=== PATIENT | male | born 1960 | race Caucasian/White ===

== ENCOUNTER 2016-12-26 13:00 | Inpatient (IN) | payer BC ==
[~2016-12-26] VITALS: Ht 175.3 cm; Wt 115.0 kg
--- NOTE | ~2016-12-26 | DS ---
PATIENT'S NAME: SNEHA RILEY [facility] AGE: 56 Y [address] ROOM: [place] [address] LOCATION: TU ADMIT DATE: 12/26/2016 Discharge Summary DISCHARGE DATE: 12/30/2016 FAMILY PHYSICIAN: Rivera Lux MD ATTENDING PHYSICIAN: Franky Giron PRIMARY DIAGNOSES: 1. 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 2. Dysarthria. 3. Right-sided weakness. 4. Paroxysmal atrial fibrillation, rate controlled. 5. Essential hypertension. 6. Hyperlipidemia. 7. Coronary artery disease status post coronary artery bypass grafting. 8. Osteoarthritis, generalized. OPERATIONS AND PROCEDURES: MRI scan of brain was performed on 12/27/2016 demonstrating a large left MCA stroke. Evidence for severe ethmoid maxillary sinusitis was noted. MR angiography performed on the same date was normal. HISTORY OF ILLNESS/REASON FOR ADMISSION: Please refer the H and P dictated on 12/26/2016. HOSPITAL COURSE: The patient was admitted to the hospital as noted above with a presumptive diagnosis of acute stroke. He did receive tPA at an outside facility before being transferred here. He was placed in the intensive care unit and post tPA protocol was followed. His clinical condition actually improved relatively quickly. By the following morning, his dysarthria had improved significantly and he was developing some improved dexterity and coordination in his right arm and leg. He had physical therapy and occupational therapy evaluations. Neurology was also involved in his evaluation. Because of the development of atrial fibrillation, Cardiology was also consulted. It was recommended to initiate Xarelto and initially this was recommended to start on 01/02/2017. After consultation with Neurology, however, and because of the large size of the stroke, there was concern for hemorrhagic conversion and was recommended to wait until 01/06/2017 to start anticoagulation and at that point, warfarin was the recommended alternative. The patient was maintained on Plavix over the course of his hospital stay here. He was otherwise rate controlled. The patient continued to show improvement, received continued physical PATIENT'S NAME: SNEHA RILEY [facility] AGE: 56 Y [address] ROOM: [place] [address] LOCATION: [facility] ADMIT DATE: 12/26/2016 Discharge Summary DISCHARGE DATE: 12/30/2016 FAMILY PHYSICIAN: Rivera Lux MD ATTENDING PHYSICIAN: Bree,Wilkins therapy, occupational therapy, and speech therapy evaluations. He also had physiatry evaluation. It is recommended that he could have outpatient therapy services. By the end of the 5th day of his hospital stay, it was felt he would be stable enough for discharge to home on an adjusted medication regimen with plans for close clinical followup with his primary care provider as well as outpatient followup with physiatry and eventual outpatient followup with neurology as well. DISCHARGE INSTRUCTIONS: DIET: Cardiac prudent as tolerated. ACTIVITY: As tolerated if outpatient physical therapy, occupational therapy, and speech therapy. MEDICATIONS: 1. Acetaminophen 650 mg p.o. q.4 hours p.r.n. pain or fever. 2. Amoxicillin 1000 mg p.o. q.i.d. for sinusitis. 3. Atorvastatin 80 mg p.o. q.p.m. 4. Plavix 75 mg p.o. daily. 5. Hydrochlorothiazide 25 mg p.o. daily. 6. Lisinopril 2.5 mg p.o. at bedtime. 7. Metoprolol 25 mg p.o. b.i.d. 8. MiraLAX 17 g p.o. b.i.d. 9. Spironolactone 25 mg p.o. daily. 10. Coumadin 5 mg p.o. daily. He will start this medication on 01/06/2017. FOLLOWUP: He will follow up with his primary care physician Dr. Lux in 3-5 days. Outpatient followup with Dr. Altamirano, resource engineer, next week. Follow up with Neurology on an as-needed basis. CONDITION ON DISCHARGE: Good. Total time spent on discharge process 35 minutes. MD ALMA ROSA CASTLE/matty /[id number] d: 12/31/16 1430 t: 01/04/17 1642, DISCHARGE SUMMARY
--- NOTE | ~2016-12-26 | CON ---
PATIENT'S NAME: SNEHA RILEY [facility] AGE: 56 Y [address] ROOM: [id number] [place], [place] [address] LOCATION: GICU ADMIT DATE: 12/26/2016 Consultation DISCHARGE DATE: FAMILY PHYSICIAN: PHYSICIAN, UNKNOWN ATTENDING PHYSICIAN: BASIL LOVING DATE OF CONSULTATION: 12/26/2016 REFERRING PHYSICIAN: Tru Altamirano MD NEUROLOGIC CONSULTATION DATE AND TIME OF DICTATION: 12/26/2016 at 3:51 p.m. HISTORY OF PRESENT ILLNESS: This is a 56-year-old, male, admitted to [facility] in a transfer from [facility] for status post stroke and tPA administration. Dr. Fitzpatrick was consulted by phone for the tPA recommendation which was given at 1156 hours and then the patient was shipped to [facility]. He was admitted around 0[address] in the [address] Dr. Loving, the hospitalist will be the admitting physician. Although, the transfer records are limited, it appears the last known well time of this patient was 1010 this a.m., when he was found with a left facial droop, inability to move his left arm, and was found and taken to the [place] [facility] at 1045 hours. He was evaluated for stroke per their protocol, had a CTA and a CT angiogram to rule out large-vessel occlusion and was given tPA at 1156 hours. The strokes scale completed at 1050 hours at their facility gave the patient a stroke scale of 10 with 1 for visual field loss, 2 for facial palsy, 2 for language aphasia, 2 for dysarthria, 2 for limb ataxia, and 1 for extinction and inattention. Upon arrival to [facility], his stroke scale was 7 which I will go into in the assessment. His blood pressure was in the 170s. His heart rate was acceptable. He was assessed and will be monitored in the intensive care unit post stroke tPA. PAST MEDICAL HISTORY: His prior medical history includes a four-vessel bypass in 2014. He does have coronary artery disease. He did not have an IN before the bypass. He is currently on full-dose aspirin, Lipitor, lisinopril, and metoprolol. He follows up with Cardiology in [place]. He has recently moved to [place] in the last year from [place]. SOCIAL HISTORY: The patient is . He has one son and three daughters. One of the daughters is an ED physician in [place], and is on her way down. He does not smoke or drink. He does use caffeine daily up to two cups a day. REVIEW OF SYSTEMS: PATIENT'S NAME: SNEHA RILEY [facility] AGE: 56 Y [address] ROOM: [place] [address] LOCATION: [facility] ADMIT DATE: 12/26/2016 Consultation DISCHARGE DATE: FAMILY PHYSICIAN: PHYSICIAN, UNKNOWN ATTENDING PHYSICIAN: BASIL LOVING Difficult to be completed because of the patient's condition and aphasia. He does deny any headache. Denies any chest palpitations or chest pain. PHYSICAL EXAMINATION: VITAL SIGNS: Blood pressure of 178/72, heart rate of 68, respirations 16, and afebrile. CONSTITUTIONAL: This is a well-nourished male in no apparent distress. HEENT: Head; normocephalic and atraumatic. External ocular movements are intact. Pupils are equal and reactive for brisk midline and round. NECK: Shows no JVD. There are no bruits appreciated. LUNGS: Respirations are even and unlabored. He is clear to auscultation bilaterally. CARDIOVASCULAR: environmental monitoring technician shows a sinus rhythm, with S1 and S2. No murmur, rub, or gallop. NEUROLOGY: Stroke scale for level of consciousness is zero, for month and age is 2, for following commands is zero, for gaze is zero, for visual deficit is 2, for facial droop is 1, for left arm is zero, for right arm is 1 for slight drift, left leg is zero, right leg is zero, ataxia is 1 for right arm, aphasia is 2, and dysarthria is 1, and he does have a slight neglect to the right; 1, 2, 3, 4, 5, 6, and 7 for his NIH Stroke Scale. He is definitely alert. He appears oriented although the aphasia is limiting as in the testing of that. When shown the stroke scale picture, he is able to graft the story, but he has difficulty relating it with his verbiage. He does demonstrate a sense of humor with the nurses. LABORATORY AND IMAGING DATA: Diagnostics include an EKG that shows sinus rhythm. He also had a CT of the head, which shows a very subtle area of low attenuation in the left posterior parietal lobe and wonder about decreased density in the left frontal lobe. There is no associated mass, mass effect, or extra-axial fluid collection, and no hemorrhage. So the CTA of his head also shows no large central thrombus, arterial flow is demonstrated in the vertebral basilar and carotid systems. There is minimal questionable decreased vascularity in the left parietal lobe when compared to the right, however, this could be due to the mild asymmetry within the gantry. IMPRESSION AND PLAN: 1. Stroke post tPA. The patient will be monitored in the ICU with the post stroke tPA protocol with frequent vital signs and neurological monitoring. We will hold aspirin until we get the 24-hour CT post tPA. We will investigate the reasons for the stroke. He is going to have an echocardiogram, carotid Dopplers, and we will also check his lipid profile. I did obtain his information from his CABG and followup from [place], and apparently, he did have some postsurgical atrial fibrillation, so we will have to keep that in account as we move forward PATIENT'S NAME: SNEHA RILEY [facility] AGE: 56 Y [address] ROOM: [place] [address] LOCATION: [facility] ADMIT DATE: 12/26/2016 Consultation DISCHARGE DATE: FAMILY PHYSICIAN: PHYSICIAN, JENNIFER ATTENDING PHYSICIAN: BASIL LOVING in examining the rest of the diagnostics. 2. PT, OT, and speech ordered for patient. Dr. Altamirano will consult on the patient for possible rehabilitation needs. 3. Plan of care was discussed with the and her friends and patient. The daughter is coming tonight so either Dr. Fitzpatrick or myself will discuss with her. Dr. Loving was present when Neurology was here so we were all on the same page as far as the plan of care. Thank you very much for this interesting consult. The consult was developed in conjunction with Dr. Fitzpatrick. ANA PAULA JAIMES APRN FOR DEREJE FITZPATRICK MD PP/matty /[id number] d: 12/26/162055 t: 01/14/17 1534, CONSULTATION REPORT
--- NOTE | ~2016-12-26 | ECHO ---
Transthoracic Echocardiography Report (TTE) Demographics Patient Name SNEHA RILEY Date of Study 12/26/2016 C Patient Number [id number] Visit Number [id number] Date of 1960 Room Number G6220 Accession Number [id number] Gender Male Age 56 year(s) Referring Bree Trevizo MD Grain Elevator Worker Sheela Davidson RVT Physician Physician Interpreting Marv Peoples Pin Inserter Regulator Physician Supervising Ordering Physician Bree Trevizo MD, MD/P Nurse Stress Quality Improvement Coordinator (Rn) Conclusions Contractility Score Summary Normal Left Ventricular contractility was noted. Summary The estimated left ventricular ejection fraction is 55% with normal WM and internal dimensions.Mild concentric left ventricular hypertrophy. The left atrium is severely dilated by LA volume index measurement. Mild MR. The right atrium is moderately dilated. Mildly dilated RV with normal function. Negative bubble study. The aortic valve is mildly sclerotic. Procedure Type of Study TTE procedure:2D Echocardiogram, M-Mode, Doppler , Color Doppler, Contrast study, Echo with Contrast. Procedure Date Date: 12/26/2016 Start: 03:03 PM Study Location: Inpatient Portable Technical Quality: Adequate visualization Indications:CVA. Appropriate Use Criteria: 9 Patient Status: Routine HR: 56 bpm BP: 168/78 mmHg M-Mode/2D Measurements LV Diastolic Dimension: 4.72 cm LV Systolic Dimension: 3.53 cm LV Septum Diastolic: 1.47 cm LV PW Diastolic: 1.44 cm AO Root Dimension: 2.1 cm Cardiac Output: 2.88 l/min AV Cusp Separation: 1.9 cm RV Diastolic Dimension: 3.06 cm LA volume: 85 ml LVOT: 2 cm RV Base: 3.3 cm LVOT VTI: 16.4 cm RV Mid: 3.86 cm LV Stroke volume: 51.5 ml TAPSE: 1.6 cm TDI-S': 11.5 cm/s Doppler Measurements AV Peak Velocity: 1.39 m/s MV Peak E-Wave: 0.93 m/s AV Peak Gradient: 7.73 mmHg MV Peak A-Wave: 0.46 m/s AV Mean Gradient: 4 mmHg MV E/A Ratio: 2 LVOT Peak Velocity: 0.71 m/s MV P1/2t: 73 msec TR Gradient:19.89 mmHg PV Peak Velocity: 0.97 m/s Estimated RAP:15 mmHg PV Peak Gradient: 3.74 mmHg Estimated RVSP: 35 mmHg Estimated PASP: 34.89 mmHg E' Septal Velocity: 0.07 m/s A' Septal Velocity: 0.08 m/s E' Lateral Velocity: 0.15 m/s A' Lateral Velocity: 0.13 m/s Findings Left Ventricle Mild concentric left ventricular hypertrophy with normal EF, WM and internal dimensions. Right Ventricle Mildly dilated right ventricle with normal function. Left Atrium The left atrium is severely dilated by LA volume index measurement. Right Atrium The right atrium is moderately dilated. IVC measures 1.37 cm with no inspiratory collapse. Negative bubble study. Mitral Valve Trivial mitral regurgitation by color Doppler. Aortic Valve The aortic valve is mildly sclerotic. Tricuspid Valve Trivial tricuspid regurgitation by color Doppler. Pulmonic Valve The pulmonic valve is not well visualized. Pericardial Effusion No evidence of pericardial effusion. Miscellaneous Visualized portions of the aortic root and ascending aorta appear normal in size. Pleural Effusion No evidence of pleural effusion. Contractility Score LV regional wall motion:(0-Non visualized 1-Normal 2-Hypokinesis 3-Akinesis 4-Dyskinesis 5-Aneurysm) Signature dtt: Richelle Fair dtd: 12/26/16 1503 Physician Self Edit
--- NOTE | ~2016-12-26 | CON ---
PATIENT'S NAME: SNEHA RILEY [facility] AGE: 56 Y [address] ROOM: [place] [address] LOCATION: [facility] ADMIT DATE: 12/26/2016 Consultation DISCHARGE DATE: FAMILY PHYSICIAN: Rivera Lux MD ATTENDING PHYSICIAN: BASIL LOVING REFERRING PHYSICIAN: Tru Altamirano MD Consult for Dr. Loving, hospitalist. This pleasant 56-year-old gentleman is referred for rehab evaluation, admitted on 12/26/2016 with sudden onset of weakness in right side with confusion and difficulty to see things, especially with the right side. CTA showed per history and physical minimal questionable decreased vascularity in the left parietal lobe in comparison to the right. He did receive per history and physical tPA without complication. Past history of significance: 1. History of coronary artery disease, status post CABG without VA. 2. History of hypertension. 3. Slight obesity, otherwise does not drink or smoke. 4. He is now alert, not able to name his family names, not able to name things (anomia). His voice is clear and not wet. Tongue and soft palate are moving symmetrical. He cannot see very well with the right eye, especially temporal side with neglect and visual cut on the temporal visual space. No facial droop at the present time. He can swallow without much difficulty. His voice is clear and not wet. Tongue and soft palate are moving symmetrical. He is unable to name family members and is unable to orient himself well towards time and sometimes even place. He is able to move his right upper and lower extremity; however, he is apraxic and cannot really know what to do with utensils sometimes unless he is cued. PHYSICAL EXAMINATION: VITAL SIGNS: Blood pressure 173/91, temperature 98.2, pulse 61, respirations 18. He is 5 feet 9 inches tall and weighs 114.5 kg. He is clinically and neurologically stable and intact. MEDICATIONS: PATIENT'S NAME: SNEHA RILEY [facility] AGE: 56 Y [address] ROOM: [address] [place] [id number] LOCATION: [facility] ADMIT DATE: 12/26/2016 Consultation DISCHARGE DATE: FAMILY PHYSICIAN: Rievra Lux MD ATTENDING PHYSICIAN: BASIL LOVING He is on the following medications: 1. Amoxicillin, which had been initiated before, details on history and physical. 2. Labetalol hydrochloride. 3. Lipitor. 4. Normal saline 0.9%. 5. Tylenol. At the present time, we will continue him on PT, OT, Speech which has been initiated. I feel that if he does not make good progress to go home and be managed at home, I will take him for intensive rehabilitation for about 2 weeks, aiming to discharge on modified independence. He is now on intensive care unit. I will continue to watch alongside with you. All the above was explained to him and his . They verbalized understanding and agreement with plan of care. MD ANTOLIN MEEKS/modl /[id number] d: 12/27/161901 t: 12/28/16 1101, CONSULTATION REPORT
--- NOTE | ~2016-12-26 | HP ---
PATIENT'S NAME: SNEHA RILEY [facility] AGE: 56 Y [address] ROOM: [address] [address] LOCATION: [facility] ADMIT DATE: 12/26/2016 History & Physical DISCHARGE DATE: FAMILY PHYSICIAN: PHYSICIAN, UNKNOWN ATTENDING PHYSICIAN: BASIL LOVING DATE OF SERVICE: CHIEF COMPLAINT: Right-sided facial droop and unable to speak and right upper and lower extremity weakness and sensation loss as well as transient blurry vision. HISTORY OF PRESENT ILLNESS: This is a 56-year-old, male who was walking on the way to the bank and suddenly he collapsed what he described as a sudden sensation of onset of weakness on the right side of the body upper and lower extremity associated with transient vision loss in both eyes and right upper and lower extremity weakness and sensation loss. The patient was not able to speak clearly, however, a bystander was able to call the ambulance, the patient was brought to the [facility] for evaluation. Over there, imaging test including CTA brain with contrast showed no large central thrombus and arterial flow is demonstrated in the vertebrobasilar and carotid system. Minimal questionable decreased vascularity in the left parietal lobe when compared to the right, however, this could also be due to mild asymmetry within the gantry. CT of the head without contrast was also performed and showed a question of low attenuation in the left frontal and posterior parietal lobes. Nonhemorrhagic ischemia is not is excluded. Findings were called to Dr. Redding, the ER physician, over there at [facility]. The blood test was also performed and it showed white blood cell 3.8, hemoglobin 12.9, hematocrit 38.3, platelet 132. Sodium 142, potassium 4.6, chloride 110, carbon dioxide 25, blood urea nitrogen 18, glucose 88, creatinine 1.1. Calcium 8.5, anion gap 12, GFR 74. ProBNP 456, INR less than one. PT 10.2, PTT 27.5. EKG was also performed show sinus rhythm at a heart rate of 73 beats per minute without any acute ischemic findings. Given that the patient is within the period for the tPA window and symptoms consistent with stroke based on the imaging study and on the clinical presentation, according to ER physician in [place], they had spoken to our neurologist and decision was to go ahead with tPA. All the benefit and risks were explained to the patient. The patient agreed and tPA was given. According to the medical records, tPA was given at 11:56 a.m. without complication. The patient denies any headache. Blood pressure was less than 185, therefore blood pressure medication was not given before the tPA. The patient was later transferred here for higher level of care. REVIEW OF SYSTEMS: As mentioned in the history of present illness. All other systems reviewed and negative except those mentioned in history of present illness. PATIENT'S NAME: SNEHA RILEY [facility] AGE: 56 Y [address] ROOM: [id number] [place], [place] [address] LOCATION: [facility] ADMIT DATE: 12/26/2016 History & Physical DISCHARGE DATE: FAMILY PHYSICIAN: PHYSICIAN, UNKNOWN ATTENDING PHYSICIAN: BASIL LOVING PAST MEDICAL HISTORY: I have requested the [facility] to fax the medical record, but they have not done so over 1 hour already. Based on what I could get from the patient's at the bedside and from the patient is that he has a history of hypertension and also a prior myocardial infarction with status post CABG in November 2014 in [place]. The patient and the patient's denies any other past medical history. ALLERGIES: NO KNOWN DRUG ALLERGIES ACCORDING TO THE PATIENT. HOME MEDICATIONS: 1. Amoxicillin 500 mg p.o. t.i.d. from December 24, 2016, to January 02, 2017. This is because he had a recent root canal procedure done by the dentist. 2. Aspirin 81 mg p.o. daily at bedtime. 3. Lipitor 40 mg p.o. daily at bedtime. 4. Cammie-Moira one packet p.o. every 12 hours p.r.n. for nasal congestion. 5. Lisinopril 2.5 mg p.o. every night at bedtime. 6. Lopressor 25 mg p.o. b.i.d. SOCIAL HISTORY: . The patient is an occasional cigar smoker but he does not inhale the smoke that he smoke cigar on and off for a few years. He denies any so he is a social alcohol drinker but he denies any alcohol use disorder. He denies any illegal drug use. 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 Next at baseline he is independent of all activities of daily living. PAST SURGICAL HISTORY: Status post CABG back in November 2014 in [place]. 1. Status post right knee surgery in the past. FAMILY HISTORY: Father had open-heart surgery at age 50 and mother from Parkinson disease complication. He has a brother, who also had stents placed in the heart in his 50s. He denies any stroke history in the family. PHYSICAL EXAMINATION: VITAL SIGNS: At the time of my dictation, blood pressure 170/90, heart rate 80, respirations 14, temperature 98, saturation 99% on room air. Pain 0/10. GENERAL APPEARANCE: Alert and oriented. Difficult to assess orientation given that the patient has Wernicke aphasia. The patient understands and follow commands but he has aphasia when he tries to speak. No acute distress. HEENT: Pupils are equally round and reactive to light. Extraocular muscles PATIENT'S NAME: SNEHA RILEY [facility] AGE: 56 Y [address] ROOM: [place] [address] LOCATION: [facility] ADMIT DATE: 12/26/2016 History & Physical DISCHARGE DATE: FAMILY PHYSICIAN: PHYSICIAN, UNKNOWN ATTENDING PHYSICIAN: BASIL LOVING intact. Anicteric sclerae. Nasal turbinates are normal bilaterally. Moist oral mucosa. No oral thrush. NECK: No JVD. No cervical lymphadenopathy. No neck stiffness. CARDIOVASCULAR: Regular rate and rhythm. Normal S1, S2. No murmur. No rubs, no gallops. RESPIRATORY: Clear. Chest wall nontender. ABDOMEN: Soft, nontender, nondistended. Normal bowel sounds. No hepatosplenomegaly. EXTREMITIES: No edema in upper or lower extremities. NEUROLOGIC: Visual field intact. No homonymous hemianopsia in either eyes. No facial droop. No tongue deviation upon protrusion. No facial asymmetry. He has Wernicke aphasia. Negative pronator drift. Babinski difficult to be determined with a slight positive in both feet. Deep tendon reflex +2 in the knees and also in the biceps and triceps. He does have a gunjan anesthesia, total sensation loss, from the right side of the upper chest all the way down to the right foot. He also has a loss of proprioception and vibration on the right lower extremity. Muscle strength intact in all 4 extremities. Finger- to-nose intact. Iapb-nl-pucr intact. Gait not assessed due to fall risk. Absent proprioception and vibration on the right lower extremity. Sensation in the face is intact on both sides. No tongue deviation upon protrusion. SKIN: No ulcer, no rash, no cyanosis. MUSCULOSKELETAL: As mentioned in the neurological section. LABORATORY DATA: Blood work from the outside facility in [place] show white blood cell 3.8, hemoglobin 12.9, hematocrit 38.3, platelet 132. Sodium 142, potassium 4.6, chloride 110, carbon dioxide 25, blood urea nitrogen 18, glucose 88, creatinine 1.1. Calcium 8.5, anion gap 12, GFR 74. ProBNP 456, INR less than one. PTT 27.5, PT 10.2. IMAGING STUDIES: EKG shows sinus rhythm at a heart rate of 73 beats per minute with normal FL, normal QTc, normal QRS duration. No acute ischemia. CT angiogram of the head performed at [facility] showed no large central thrombus. Arterial flow is demonstrated in the vertebrobasilar and carotid system. Minimal questionable decrease in vascularity in the left parietal lobe, when compared to the right. However this could also be due to mild asymmetry within the gantry. CT of the head without contrast, outside facility today, [facility] showed questionable low attenuation in the left frontal and posterior parietal lobes, nonhemorrhagic ischemia is not excluded. Findings were called to Dr. Edge emergency department at [facility]. There is no hemorrhage. No midline shift. No mass. PATIENT'S NAME: SNEHA RILEY [facility] AGE: 56 Y [address] ROOM: [place] [address] LOCATION: [facility] ADMIT DATE: 12/26/2016 History & Physical DISCHARGE DATE: FAMILY PHYSICIAN: PHYSICIAN, UNKNOWN ATTENDING PHYSICIAN: BASIL LOVING ER COURSE: Over in [facility], the patient was given tPA at 11:56 am. ASSESSMENT: 1. Acute ischemic stroke. Most likely, in the left frontal and posterior parietal lobe based on the CT of the head without contrast. The patient is status post status post tPA therefore he will be in the ICU here for post tPA care. We will start all the typical post tPA care orders including Lipitor 80 mg p.o. x1 and then daily. No blood draw in the next 24 hours from the tPA administration time. Speech and swallow evaluation. Fall precaution and aspiration precaution. Check the patient's blood work tomorrow 24 hours after tPA we will be getting a lipid panel and hemoglobin A1c and other basic lab. Watch the blood pressure closely and if it is more than 180 systolic will be given IV labetalol p.r.n. Otherwise we do not treat the blood pressure less than 180. Also given IV fluids normal saline at 75 mL/h to keep the blood pressure on the higher end to increase the brain perfusion but not too high enough no more than 180 systolic to prevent hemorrhage. PT, OT and Speech and Swallow evaluation. In 24 hours after tPA, the patient will get a CT of the head without contrast together with MRI of the brain. Also get a carotid artery ultrasound. We will get a transthoracic echo as well and I will put a consult with neurology. The patient was already on aspirin at home, but still developed stroke therefore patient could be switched to Plavix or given dipyridamole to the current aspirin once we are sure that he does not have any hemorrhagic conversion after the tPA based on the CT and MRI of the head 24 hours after tPA administration. Further plan depends on clinical course. 2. Regarding his hypertension: As mentioned before, do not give any medication unless it is more than 180 systolic. 3. History of coronary artery disease status post CABG: Currently stable there is no chest pain. 4. DVT prophylaxis: He is on compression devices. On the date of admission, time spent was 60 minutes, including waiting for the [facility] to finally send a fax report here after I called them twice each time over 1 hour of wait time to send the report of the CT angiogram and CT of the head to be sent over here. This time also including examining the patient, interviewing the patient, addressing all the questions and concerns the patient had, and going over the plan of care with the patient and the patient's and the ICU nurse. BASIL LOVING MD PATIENT'S NAME: SNEHA RILEY [facility] AGE: 56 Y [address] ROOM: [address] [place] [id number] LOCATION: [facility] ADMIT DATE: 12/26/2016 History & Physical DISCHARGE DATE: FAMILY PHYSICIAN: PHYSICIAN, UNKNOWN ATTENDING PHYSICIAN: BASIL LOVING/matty /[id number] D: [id number] T: [id number] HISTORY & PHYSICAL
--- NOTE | ~2016-12-26 | CON ---
PATIENT'S NAME: SNEHA MCDONALD [facility] AGE: 56 Y [address] ROOM: [place] [address] LOCATION: [facility] ADMIT DATE: 12/26/2016 Consultation DISCHARGE DATE: FAMILY PHYSICIAN: Rivera Lux MD ATTENDING PHYSICIAN: BASIL LOVING DATE OF CONSULTATION: 12/28/2016 REFERRING PHYSICIAN: Tru Altamirano MD Patient of Dr. Loving. HISTORY OF PRESENT ILLNESS: Dear Dr. Loving, thank you for asking me to see Mr. Mcdonald, who has come in with a CVA. The main concern is his background cardiac problems that he has had. He had a carotid ultrasound and echocardiogram done. The echocardiogram showed severely dilated left atrium, mild LVH, and normal ejection fraction with no wall-motion abnormalities and dilated right heart chambers. He has a history of coronary artery disease and was having chest pains and it ended up with the bypass grafting in 2014 at [place], [place]. He does not remember having had an TX at any time. He denies rheumatic fever, congestive heart failure, or atrial fibrillation shown up until now. He has history of hypertension. There is no history of diabetes. He smokes a cigar occasionally. His cholesterol is elevated. There is significant family history of premature coronary artery disease. The patient has been doing well since his bypass grafting and has been on no regular exercise program, and has been in functional class 2 with no paroxysmal nocturnal dyspnea or orthopnea. He has been following up with Dr. Laird in [place]. 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 There is no lightheadedness, dizziness, syncope, presyncope, palpitations, or ankle swelling. CURRENT MEDICATIONS: 1. Aspirin 81 mg a day. 2. Fluoxetine 40 mg b.i.d. 3. Cammie-Collins 1 packet every 12 hours. 4. Lisinopril 2.5 mg every night. 5. Lopressor 25 b.i.d. ALLERGIES: NO KNOWN DRUG ALLERGIES. PAST MEDICAL HISTORY: Variable in terms of his myocardial infarction, but otherwise has been healthy. PATIENT'S NAME: SNEHA MCDONALD [facility] AGE: 56 Y [address] ROOM: [place] [address] LOCATION: 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 He is . He denies abusing alcohol. His appetite and weight are stable. Sleep is fair. FAMILY HISTORY: He does have a strong family history of premature coronary artery disease. REVIEW OF SYSTEMS: A 12-point review of systems revealed that he has had a cold recently and has been taking a lot of Cammie-Collins. PHYSICAL EXAMINATION: VITAL SIGNS: On examination, his blood pressure is in the 150s to 170s, systolic; heart rate is in the 60s and regular, respirations are 18, and afebrile. HEENT: Normal. NECK: Supple with no JVD, thyromegaly, lymphadenopathy, or carotid bruits. PMI is not well located. First and second heart sounds are regular. There are no added sounds or murmurs. CHEST: Clear to auscultation. ABDOMEN: Soft and obese. Bowel sounds are normally present. EXTREMITIES: Reveal no edema. CENTRAL NERVOUS SYSTEM: Intact. ASSESSMENT AND PLAN: The patient has had a cerebrovascular accident at this time. He had a run of asymptomatic atrial fibrillation on the 29 of December. He should probably be indefinitely anticoagulated as he has a CHADS2-VASc score of at least 3. As far as antiarrhythmics and ablation, etc, are concerned, for now he is well controlled as far as the rate is concerned. If there is any question about any other additional procedures or medications that he needs, he can follow up for that with his primary stereotype caster. Again, I appreciate this opportunity to participate in the care of Mr. Mcdonald. MD MARLYS VALENCIA/matty /[id number] d: 12/29/162 t: 01/14/17 1326, CONSULTATION REPORT
[2016-12-26] MEDS ORDERED: AMOXICILLIN500 MG PO (14:21)
[2016-12-26] MEDS ORDERED: LOPRESSOR25 MG PO (14:22)
[2016-12-26] MEDS ORDERED: ZESTRIL2.5 MG PO (14:22)
[2016-12-26] MEDS ORDERED: LIPITOR80 MG PO (14:22)
[2016-12-26] MEDS ORDERED: ASPIRIN LO-DOSE81 MG PO (14:24)
[2016-12-26] MEDS ORDERED: ALKA-SELTZER P1 EAC1 PO (14:24)
--- NOTE | 2016-12-26 17:12 | NUR ---
Significant Event: Patient is alert/oriented x3. NIH stroke scale of 7, patient's speech and R)UE effected. Bedrest. Passed swallow study with a soft diet, regular liquids, pills need crushed and placed in applesauce or pudding. PERRLA. RUE has no feeling observed. NS infusing at 75ml/hr. ECHO completed. Will have a CT scan and MRI completed tomorrow at some time after 1200pm. Voids without difficulty. at bedside. Follow up:
--- NOTE | 2016-12-27 03:44 | NUR ---
SIGNIFICANT EVENT: NO NEUROLOGICAL CHANGES THROUGHOUT SHFIT. NIHSS 5. PT HAS NO SENSATION TO R ARM AND LEG BUT CAN MOVE THESE EXTREMITIES WELL WITH GOOD STRENGTH. SWALLOWING WITHOUT ISSUES. EXPRESSIVE APHASIA IS PRESENT BUT PATIENT IS ABLE TO CONVERSE AND VOICE NEEDS. FOLLOW UP:
--- NOTE | 2016-12-27 10:50 | NUR ---
CONSULT PER STROKE PROTOCOL RECEIVED. S/P tPA. PASSED SWALLOW STUDY, [facility] SOFT W/ THIN LIQUID. INTAKE 75-100% X1 MEAL. ATTEMPT TO PROVIDE DIET EDUCATION BUT PT DOWN FOR MRI. WILL ATTEMPT TO COMPLETE DIET EDUCATION PRIOR TO DISCHARGE.
--- NOTE | 2016-12-27 14:05 | NUR ---
Significant Event: Patient alert/oriented x3. Patient has a stroke scale this AM of 5. Dysarthria, and some ataxia to R) side extremities. Sensation is numb to right sided extremities, but has full strength to all 4 extremities. Up ambulating with 1 min assist and gait belt. Afebrile. Voiding without difficulty. IV's to right antecubital and right hand. Follow up:
[2016-12-27 15:17] LABS: HEMATOCRIT 37.3 % (37.0-53.0); HEMOGLOBIN 12.5 g/dL (12.0-17.0); MCHC 33.5 gm/dL (32.0-36.5); MCV 92.6 fl (83.0-98.0); MPV 10.6 fl (9.4-12.4); RBC 4.03 M/uL (4.00-6.00); RDW-CV 11.9 % (11.9-14.6); WBC 5.7 K/uL (4.0-11.0)
[2016-12-27 15:36] LABS: ALBUMIN 3.2 gm/dL (3.5-5.0); ALK PHOS 65 IU/L (33-138); ALT 36 IU/L (12-78); ANION GAP 15.1 (10.0-19.0); AST 33 IU/L (10-40); BLOOD UREA NITROGEN 12 mg/dL (6-24); CALCIUM 8.3 mg/dL (8.5-10.5); CHLORIDE 110 mMol/L (96-110); CO2 22 mMol/L (22-32); CREATININE 0.9 mg/dL (0.6-1.3); ESTIMATED GFR (MDRD EQUATION) > 60; MAGNESIUM 2.4 mg/dL (1.3-2.6); PHOSPHORUS 2.7 mg/dL (2.5-4.9); POTASSIUM 4.1 mMol/L (3.7-5.1); SODIUM 143 mMol/L (135-145); TOTAL BILIRUBIN 0.6 mg/dL (0.0-1.5); TOTAL PROTEIN 6.3 g/dL (6.0-8.4)
--- NOTE | 2016-12-27 16:38 | NUR ---
Significant Event: PT TRANSFERRED FROM ICU TO ROOM 6220 AT 1515. PT CHOSE TO AMBULATE TO THE ROOM. NO CHANGES NOTED FROM PREVIOUS ASSESSMENTS. TRANSFERS WITH STAND-BY ASSIST. VOIDS PER BATHROOM. PRN TYLENOL GIVEN AT 1609 FOR COMPLAINTS OF A HEADACHE, WITH RELIEF. HAS BEEN AT BEDSIDE SINCE TRANSFER. Follow up: CONTINUE TO MONITOR
--- NOTE | 2016-12-28 02:26 | NUR ---
Significant Event: Patient is alert and oriented x3. VSS. PERRLA. Has trouble with word finding. Denies ACOSTA, pain, or N/T. NIHSS-5. Hypertensive and bradycardic this shift. Keep SBP less than 215- labetalol PRN for SBP equal to or greater than. Continent of B&B. Room air-lungs are clear. Last Bm 12/25-active x4-miralax given this shift. NS at 75 in Right hand-right AC is SL'd. Regular diet with soft meats. Up with SBA. Takes pills whole with water. Follow up: NIH scale. PT/OT to work with patient.
--- NOTE | 2016-12-28 15:22 | NUR ---
Significant Event: A/O X3, 1 assist/gait belt. up in chair, ambulates with PT. saline lock R)AC, IVF R)hand. NIHSS=4, RUE & RLE dull sensation, difficulty word finding. good appetite, lots of family @ bedside. voids per toilet. Follow up: plan possible discharge home tomorrow
--- NOTE | 2016-12-29 05:16 | NUR ---
Significant Event: Patient alert and oriented x3. Up with standby assist. NIHSS 3. Dull sensation to right side of face, arm and leg, partial right hemianopia, and very slight aphasia. PERRLA. Denies headache or any pain. Bradycardic. SBPs have been 160s up to the highest of 190s. IV to right AC saline locked and IV to right hand running fluids. On room air. Takes meds crushed in applesauce. Pleasant/cooperative with cares. at bedside. Follow up: home today
--- NOTE | 2016-12-29 17:15 | NUR ---
Significant Event: A/O X3, 1 assist/gait belt, @ family @ bedside all shift, ambulates in boogie, up in chair all shift, saline lock R)hand & R)AC. BM today, voids per toilet. went into AFIB this morning, went to AFlutter. NIHSS= 4, dull sensation RUE & RLE, difficulty word finding at times. Follow up: plan for discharge home tomorrow.
--- NOTE | 2016-12-30 05:07 | NUR ---
Significant Event: PATIENT IS ALERT AND ORIENTED. CALLS APPROPRIATELY. REGULAR DIET/LIQUIDS. NIH WAS 3. PATIENT HAS DULL SENSATION TO RIGHT UPPER AND LOWER EXTREMITIES. PATIENT ALSO EXPERIENCES SOME APHAGIA. HE IS UP WITH STAND BY ASSISTANCE. SL X2 TO RIGHT FOREARM. PATIENT HAS BEEN IN A.FLUTTER, WELL BRADYCARDIC. PATIENT WILL PLAN ON BEING DISCHARGED TO HOME TODAY WITH ORDERS TO PERFORM A TREND OX AT HOME AN OUTPATIENT. PATIENT WILL BE DISCHARGED ON PLAVIX X2 WEEKS THEN BE CHANGED TO COUMADIN. PATIENT AND FAMILY AWARE OF THIS PLAN. Follow up:
--- NOTE | 2016-12-30 11:58 | NUR ---
Reviewed Tony' chart and talked with nursing. In reviewing his chart, it appears that he lives at home with , plan is to return there later today as soon as doctors round. Nursing voices no concerns about him returning home, family is up in the room now visiting him and will transport him home when orders are complete. He plans to go home with outpatient therapies and also follow up with an outpatient trendox study as well. Let nursing know if they had any questions to please let me know and I would come back and talk with Tony and family. Plan home this afternoon. Will continue to follow and assist.
[2016-12-30] MEDS ORDERED: ALDACTONE25 MG PO (12:46)
[2016-12-30] MEDS ORDERED: HYDRODIURIL25 MG PO (12:46)
[2016-12-30] MEDS ORDERED: PLAVIX75 MG PO (12:48)
[2016-12-30] MEDS ORDERED: MIRALAX17 GM PO (12:48)
[2016-12-30] MEDS ORDERED: TYLENOL325 MG PO (12:51)
[2016-12-30] MEDS ORDERED: COUMADIN ** IA5 MG PO (13:27)
--- NOTE | 2016-12-30 15:29 | NUR ---
ALL BELONGINGS GATHERED AND SENT WITH PATIENT. INFO REVIEWED WITH PATIENT AND DAUGHTER . NO FURTHER QUESTIONS. TAKEN TO FRONT LOBBY PER TRANSPORT.
== END 2016-12-30 15:07 | disposition disaster alternative care site (69) | DRG 65 ==
LOC: GICU 13:00 → GNTU 13:11 → GICU 13:11 → GNTU 12-27 15:20
PROVIDERS: Internal Medicine; ADMIT Specialist
DX: I63.512 Cerebral infarction due to unspecified occlusion or stenosis of left middle cerebral artery (principal); G81.91 Hemiplegia, unspecified affecting right dominant side; G51.0 Bell's palsy; I10 Essential (primary) hypertension; I48.0 Paroxysmal atrial fibrillation; H54.3 Unqualified visual loss, both eyes; Z92.82 Status post administration of tPA (rtPA) in a different facility within the last 24 hours prior to admission to current facility; I25.10 Atherosclerotic heart disease of native coronary artery without angina pectoris; I25.2 Old myocardial infarction; Z95.1 Presence of aortocoronary bypass graft; E78.5 Hyperlipidemia, unspecified; J32.2 Chronic ethmoidal sinusitis; R47.1 Dysarthria and anarthria; H53.8 Other visual disturbances; F17.290 Nicotine dependence, other tobacco product, uncomplicated; E66.9 Obesity, unspecified; Z68.37 Body mass index [BMI] 37.0-37.9, adult
CPT/HCPCS: C8929; J7030